=== PATIENT | female | born 1970 | race Caucasian/White ===

== ENCOUNTER 2020-10-26 19:04 | Emergency (ER) | payer MEDICAID ==
[~2020-10-26] VITALS: Ht 157.5 cm; Wt 83.9 kg
[2020-10-26 19:38] VITALS: BP 130/75
--- NOTE | 2020-10-26 19:38 | NUR ---
49 Y/O FEMALE PRESENTED TO ED C/O LT FOOT PAIN X 2 MONTHS. PT STATES SHE FELL OUT OF BUNK BED AND LANDED ON HER FOOT. PT IS ABLE TO AMBULATE W/ PAIN. NO OBSERVED SWELLING OR REDNESS NOTED AT SITE. +CMS, +PEDAL PULSES. PT IN LOBBY. NO ACUTE DISTRESS NOTED. PMH: HTN NKA
--- NOTE | 2020-10-26 19:44 | NUR ---
PT AMBULATED TO LOBBY W/ STEADY GAIT. PT PROVIDED URINE SPECIMEN CUP AT THIS TIME.
--- NOTE | 2020-10-26 20:23 | NUR ---
PT TAKEN TO RADIOLOGY FROM [facility]
--- NOTE | 2020-10-26 22:10 | NUR ---
RESULT BACK AND NOTED BY ERMD AND FOR D/C
--- NOTE | 2020-10-26 22:18 | NUR ---
PLACED POSTIOR LONG BONE SPLINT ON PT'S LEFT FOOT. PMSC'S WERE CHECKED BEFORE AND AFTER PLACMENT OF SPLINT WITHOUT INCIDENT. GAVE PT A PAIR OF CRUTCHES AND PREFORMED ONE ON ONE INTRUCTIONS ON HOW TO USE THEM WITHOUT INCIDENT.
--- NOTE | 2020-10-26 22:40 | NUR ---
Patient discharged with v/s stable. Written and verbal after care instructions given and explained. Patient alert, oriented and verbalized understanding of instructions. Ambulatory with . All questions addressed prior to discharge. ID band removed. Patient advised to follow up with PMD. Rx of NARCAN 4MG, NORCO 5/325MG given. Patient educated on indication of medication including possible reaction and side effects. Opportunity to ask questions provided and answered.
[2020-10-26 22:45] VITALS: BP 122/76
== END 2020-10-26 22:40 | disposition home or self-care (01) ==
LOC: MED 19:04
DX: S92.002A Unspecified fracture of left calcaneus, initial encounter for closed fracture (principal); M54.5 Low back pain; W06.XXXA Fall from bed, initial encounter; Y93.89 Activity, other specified; Y92.89 Other specified places as the place of occurrence of the external cause; Y99.8 Other external cause status
CPT/HCPCS: 29505; 72131; 73700; 99285

== ENCOUNTER 2022-08-09 00:26 | Emergency (ER) | payer MEDICAID, OTHER ==
[~2022-08-09] VITALS: Ht 157.5 cm; Wt 56.7 kg
[2022-08-09 00:39] VITALS: BP 136/75
--- NOTE | 2022-08-09 00:42 | NUR ---
TO LOBBY A/W BED AMBULATORY
--- NOTE | 2022-08-09 01:18 | NUR ---
PT AMBULATED TO ER BED 8
--- NOTE | 2022-08-09 01:20 | NUR ---
RECEIVED IN BED 8 WITH C/O RT LEG PAIN FOR 2 DAYS, LOWER BACK PAIN, SINCE 2017, NO TRAUMA NOR INJURY
[2022-08-09] MEDS ORDERED: KETOROLAC 30 MG/ML VIAL IM ONE (02:55)
[2022-08-09] MEDS ORDERED: LIDOCAINE 5% 1 EA PATCH TP SCH (02:55)
[2022-08-09] MEDS ORDERED: CYCLOBENZAPRINE 10 MG TAB PO ONE (02:55)
[2022-08-09] MEDS ORDERED: ACET-10509 PO (03:57)
[2022-08-09] MEDS ORDERED: DICL100G5 TP (03:57)
[2022-08-09] MEDS ORDERED: NAPR-1871 PO (03:57)
[2022-08-09] MEDS ORDERED: CYCL-711 PO (03:57)
--- NOTE | 2022-08-09 04:20 | NUR ---
Patient discharged with v/s stable. Written and verbal after care instructions given and explained. Patient alert, oriented and verbalized understanding of instructions. Ambulatory with steady gait. All questions addressed prior to discharge. ID band removed. Patient advised to follow up with PMD. Rx of TYLENOL EXTRA STRENGTH, FLEXERIL, DICLOFENAC SODIUM, AND NAPROXEN given. Patient educated on indication of medication including possible reaction and side effects. Opportunity to ask questions provided and answered.
[2022-08-09 04:24] VITALS: BP 136/75
== END 2022-08-09 04:20 | disposition home or self-care (01) ==
LOC: MED 00:26
DX: S76.911A Strain of unspecified muscles, fascia and tendons at thigh level, right thigh, initial encounter (principal); M54.50 Low back pain, unspecified; I10 Essential (primary) hypertension; Z79.899 Other long term (current) drug therapy; X58.XXXA Exposure to other specified factors, initial encounter; Y93.89 Activity, other specified; Y92.89 Other specified places as the place of occurrence of the external cause; Y99.8 Other external cause status
CPT/HCPCS: 96372; 99283; J1885